=== PATIENT | female | born 1950 | race Caucasian/White ===

== ENCOUNTER 2020-08-06 10:58 | Outpatient (CLI) | payer BC ==
--- NOTE | 2020-08-06 12:13 | CT ---
CT BRAIN WITH AND WITHOUT CONTRAST: HISTORY: Other transient cerebral ischemic attacks COMPARISON: None FINDINGS: No evidence of acute infarct, hemorrhage, mass, midline shift or abnormal extra-axial fluid collectio ns is seen. No abnormal postcontrast enhancement is noted. The ventricular size is appropriate and the basilar cisterns are patent. The bony calvarium is intact. The visualized paranasal sinuses and m astoid air cells are well aerated. IMPRESSION: No CT evidence of acute intracranial process or mass.
== END 2020-08-06 10:59 | disposition home or self-care (01) ==
LOC: SCSCT 10:58
PROVIDERS: ATTEND Family Medicine
DX: G45.8 Other transient cerebral ischemic attacks and related syndromes (principal)
CPT/HCPCS: 70470; 82565

== ENCOUNTER 2020-08-24 14:50 | Outpatient (CLI) | payer BC ==
--- NOTE | 2020-08-24 15:28 | ULT ---
BILATERAL CAROTID DUPLEX ULTRASOUND: HISTORY: TIA TECHNIQUE: Grayscale, color-flow and spectral Doppler ultrasound imaging of the extracranial carotid artery syst ems and vertebral arteries was performed bilaterally. FINDINGS: No large amount of echogenic plaque is seen involving the common carotid or internal carotid arteries . The peak systolic velocity in the right ICA measures 73.6 cm/s. The peak systolic velocity in the ri ght CCA measures 109 cm/s. The peak systolic velocity in the left ICA measures 100 cm/s. The peak systolic velocity in the le ft CCA measures 104 cm/s. The right IC/CC ratio is0.68. The left IC/CC ratio is 0.96. Vertebral flow: antegrade, bilaterally. . IMPRESSION: No hemodynamically significant stenosis of Both ICAs.
== END 2020-08-24 14:51 | disposition home or self-care (01) ==
LOC: BICULT 14:50
PROVIDERS: ATTEND Family Medicine
DX: G45.8 Other transient cerebral ischemic attacks and related syndromes (principal)
CPT/HCPCS: 93880

== ENCOUNTER 2021-06-08 15:33 | Outpatient (CLI) | payer BC | END 2021-06-08 15:34 | disposition home or self-care (01) | LOC: BICMAMMO 15:33 | PROVIDERS: ATTEND Family Medicine | DX: Z12.31 Encounter for screening mammogram for malignant neoplasm of breast (principal) | CPT/HCPCS: 77063; 77067 ==